=== PATIENT | male | born 1995 ===

== ENCOUNTER 2021-05-29 15:15 | Emergency (ER) | payer SELFPAY ==
[~2021-05-29] VITALS: Ht 170.2 cm; Wt 78.0 kg
[2021-05-29 16:23] LABS: MICROSCOPIC INDICATED
--- NOTE | 2021-05-29 16:35 | NUR ---
CALL PATIENT AT [facility]OB[facility], NO ANSWER
--- NOTE | 2021-05-29 16:59 | NUR ---
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
--- NOTE | 2021-05-29 17:00 | NUR ---
NO ANSWER FROM THE LOBBY AGAIN
== END 2021-05-29 18:23 | disposition left against medical advice (07) ==
LOC: ED 18:10
DX: R10.31 Right lower quadrant pain (principal); R11.0 Nausea
CPT/HCPCS: 81001; 99283